=== PATIENT | female | born 1955 | race African-American/Black ===

== ENCOUNTER 2025-01-16 09:19 | Inpatient (IN) | payer MEDICARE ==
[2025-01-13 11:47] LABS: BASOPHILS % 1.4 % (0.0-1.0); EOSINOPHILS % 0.4 % (0.0-6.0); LYMPHOCYTES % 32.7 % (18.0-39.1); MONOCYTES % 6.9 % (4.4-11.3); NEUTROPHILS % 58.4 % (38.7-80.0); RED CELL DISTRIBUTION WIDTH 12.4 % (11.7-14.4)
[2025-01-13 12:17] LABS: EST GLOMERULAR FILTRATION RATE 53.0 ML/MIN (>=60)
[2025-01-16] VITALS (14 sets, daily range): BP systolic 150–181; BP diastolic 65–107; PULSE 71–101; RESP 7–16; TEMP 97.2–98.9; O2SAT 99–100
[~2025-01-16] VITALS: Ht 162.6 cm; Wt 84.9 kg
[~2025-01-16 09:19] MED LIST: ALDACTONE100 MG PO; AMOX TR-K CLV1 EAC2 PO; ATORVASTATIN CA10 MG PO; BREZTRI AEROS10.7 GM INH; CATAPRES-TTS 11 EACH TD; CEFDINIR300 MG PO; CLONIDINE HCL0.2 MG PO; EXCEDRIN EXTRA1 EAC1 PO; HYGROTON25 MG PO; LOTENSIN40 MG PO; MINOXIDIL10 MG PO; MINOXIDIL2.5 MG PO; NITROGLYCERIN0.4 MG SL; PREDNISONE20 MG PO; TERAZOSIN HCL1 MG PO; VENTOLIN HFA18 GM INH; ZOLPIDEM TARTRAT5 MG PO
[2025-01-16] MEDS: LACTATED RINGER'S 1,000 ML ONE (10:22)
[2025-01-16] MEDS: CEFAZOLIN SODIUM 2 GM ONE (10:22)
[2025-01-16] MEDS ORDERED: LIDOCAINE HCL 2% LOCAL INJ 5 ML SDV VIAL INJ ONE (12:14)
[2025-01-16] MEDS ORDERED: FENTANYL CITRATE/PF 100MCG/2 ML INJ ONE (12:14)
[2025-01-16] MEDS ORDERED: ACETAMINOPHEN 1000 MG/100 ML 100 ML IV ONE (12:14)
[2025-01-16] MEDS ORDERED: PROPOFOL IV EMULSION 10 MG/ML 20 ML VIAL ONE (12:14)
[2025-01-16] MEDS ORDERED: ROCURONIUM BROMIDE 1 ML IV ONE ×2 (12:14→15:07)
[2025-01-16] MEDS ORDERED: SEVOFLURANE INHAL SOLN 250 ML PEN BTL ONE (12:14)
[2025-01-16] MEDS ORDERED: HYDRALAZINE HCL 20 MG/ML VIAL ONE (14:03)
[2025-01-16] MEDS: SODIUM CHLORIDE 0.9% 250ML IRRIG IR SCH (14:15)
[2025-01-16] MEDS: SODIUM CHLORIDE 0.9% 1000ML 1,000 ML IV SCH (14:15)
[2025-01-16] MEDS ORDERED: NALOXONE HCL INJ 0.4 MG/ML AMP IV PRN (14:15)
[2025-01-16] MEDS ORDERED: DIPHENHYDRAMINE HCL INJ 50 MG/ML VIAL IM PRN (14:15)
[2025-01-16] MEDS ORDERED: MORPHINE SULFATE 1 MG/ML 30ML PCA IV PRN ×2 (14:15→17:00)
[2025-01-16] MEDS ORDERED: DEXAMETHASONE SOD PHOS INJ 4 MG/ML SDV ONE (14:16)
[2025-01-16] MEDS ORDERED: FAMOTIDINE 20 MG/2 ML VIAL IV ONE (14:16)
[2025-01-16] MEDS ORDERED: ONDANSETRON HCL INJ 2MG/ML 2ML 2 MG/ML VIAL ONE (14:16)
[2025-01-16] MEDS ORDERED: HYDROMORPHONE 2MG/ML ONE (14:20)
[2025-01-16] MEDS ORDERED: HYDROCORTISONE SOD SUCCINATE 100 MG VIAL ONE (14:30)
[2025-01-16] MEDS ORDERED: SUGAMMADEX SODIUM 200 MG/2 ML VIAL IV ONE (16:06)
[2025-01-16] MEDS: FENTANYL CITRATE/PF 100MCG/2 ML INJ ONE (16:30)
[2025-01-16] MEDS: MORPHINE SULFATE 1 MG/ML 30ML PCA ONE (16:43)
[2025-01-16 16:45] LABS: BASOPHILS % 0.9 % (0.0-1.0); EOSINOPHILS % 0.6 % (0.0-6.0); LYMPHOCYTES % 33.6 % (18.0-39.1); MONOCYTES % 3.2 % (4.4-11.3); NEUTROPHILS % 61.4 % (38.7-80.0); RED CELL DISTRIBUTION WIDTH 12.6 % (11.7-14.4)
[2025-01-16 17:04] LABS: EST GLOMERULAR FILTRATION RATE 56.0 ML/MIN (>=60)
[2025-01-16] MEDS: HYDROMORPHONE 1MG/1ML INJ ONE (17:24)
[2025-01-16] MEDS: ACETAMINOPHEN 1000 MG/100 ML IV PRN (20:54)
[2025-01-16] MEDS: LABETALOL HCL 5 MG/ML 20ML VIAL IV PRN (21:55)
[2025-01-16] MEDS: MORPHINE SULFATE 1 MG/ML 30ML PCA IV PRN (22:10)
[2025-01-17] VITALS (34 sets, daily range): BP systolic 139–199; BP diastolic 47–109; PULSE 66–93; RESP 10–20; TEMP 97.4–99.3; O2SAT 98–100
[2025-01-17] MEDS: HYDRALAZINE HCL 20 MG/ML VIAL IV PRN (03:40)
[2025-01-17 06:39] LABS: BASOPHILS % 0.1 % (0.0-1.0); EOSINOPHILS % 0.0 % (0.0-6.0); LYMPHOCYTES % 4.4 % (18.0-39.1); MONOCYTES % 5.0 % (4.4-11.3); NEUTROPHILS % 90.1 % (38.7-80.0); RED CELL DISTRIBUTION WIDTH 12.9 % (11.7-14.4)
[2025-01-17 06:59] LABS: EST GLOMERULAR FILTRATION RATE 48.0 ML/MIN (>=60)
[2025-01-17] MEDS: CLONIDINE HCL 0.2 MG/24 HR 1 EA PATCH TOP SCH (09:42)
[2025-01-17] MEDS ORDERED: CHLORTHALIDONE 25 MG TAB PO SCH (15:45)
[2025-01-17] MEDS: CARVEDILOL 12.5 MG TAB PO SCH (16:52)
[2025-01-17] MEDS: TERAZOSIN HCL 1 MG CAP PO SCH (21:20)
[2025-01-18] VITALS (36 sets, daily range): BP systolic 156–205; BP diastolic 52–87; PULSE 1–93; RESP 11–25; TEMP 99–99.2; O2SAT 100
[2025-01-18 06:46] LABS: BASOPHILS % 0.3 % (0.0-1.0); EOSINOPHILS % 0.1 % (0.0-6.0); LYMPHOCYTES % 9.6 % (18.0-39.1); MONOCYTES % 6.6 % (4.4-11.3); NEUTROPHILS % 82.7 % (38.7-80.0); RED CELL DISTRIBUTION WIDTH 13.3 % (11.7-14.4)
[2025-01-18 08:16] LABS: EST GLOMERULAR FILTRATION RATE 53.0 ML/MIN (>=60)
[2025-01-18] MEDS: SPIRONOLACTONE 25 MG TAB PO SCH (08:49)
[2025-01-18] MEDS: CHLORTHALIDONE 25 MG TAB PO SCH (08:49)
[2025-01-18] MEDS ORDERED: MORPHINE SULFATE 1 MG/ML 30ML PCA IV PRN (11:30)
[2025-01-18] MEDS: LACTATED RINGER'S 1,000 ML INJ ONE (11:57)
[2025-01-18] MEDS: ALBUTEROL SULF 0.083% NEB SOLN 3 ML NEB NEB SCH (13:00)
[2025-01-18] MEDS ORDERED: NIFEDIPINE CR 30 MG TAB PO ONE (16:25)
[2025-01-18] MEDS: NICARDIPINE 20MG/200ML PREMIX 200 ML IV SCH (16:46)
[2025-01-18] MEDS: HYDROMORPHONE 1MG/1ML INJ IV PRN (16:47)
[2025-01-19] VITALS (75 sets, daily range): BP systolic 121–190; BP diastolic 44–99; PULSE 69–104; RESP 13–25; TEMP 98.1–99.3; O2SAT 100
[2025-01-19 06:43] LABS: BASOPHILS % 0.3 % (0.0-1.0); EOSINOPHILS % 0.3 % (0.0-6.0); LYMPHOCYTES % 10.3 % (18.0-39.1); MONOCYTES % 5.7 % (4.4-11.3); NEUTROPHILS % 83.0 % (38.7-80.0); RED CELL DISTRIBUTION WIDTH 12.9 % (11.7-14.4)
[2025-01-19 07:27] LABS: EST GLOMERULAR FILTRATION RATE 71.0 ML/MIN (>=60)
[2025-01-19] MEDS ORDERED: MAGNESIUM SULFATE 2GM/50ML IV ONE (08:00)
[2025-01-19] MEDS: MAGNESIUM SULFATE 2GM/50ML 50 ML IV ONE (08:46)
[2025-01-19] MEDS ORDERED: NIFEDIPINE CR 30 MG TAB PO SCH (09:00)
[2025-01-19] MEDS: LACTATED RINGER'S 1,000 ML INJ SCH (13:27)
[2025-01-19] MEDS: ACETAMINOPHEN/CODEINE 300MG - 30MG TAB PO PRN (16:47)
[2025-01-19] MEDS: SENNA-S TABLET PO SCH (17:00)
[2025-01-20] VITALS (36 sets, daily range): BP systolic 94–172; BP diastolic 53–128; PULSE 65–86; RESP 14–23; TEMP 98.2–98.9; O2SAT 99–100
[2025-01-20 06:10] LABS: BASOPHILS % 0.6 % (0.0-1.0); EOSINOPHILS % 1.2 % (0.0-6.0); LYMPHOCYTES % 22.3 % (18.0-39.1); MONOCYTES % 8.0 % (4.4-11.3); NEUTROPHILS % 67.4 % (38.7-80.0); RED CELL DISTRIBUTION WIDTH 12.5 % (11.7-14.4)
[2025-01-20 06:36] LABS: PHOSPHORUS 1.8 MG/DL (2.3-4.7)
[2025-01-20 06:38] LABS: EST GLOMERULAR FILTRATION RATE 57.0 ML/MIN (>=60)
[2025-01-20] MEDS ORDERED: MAGNESIUM HYDROXIDE 30 ML UDC PO PRN (08:45)
[2025-01-20] MEDS: CLONIDINE HCL 0.3MG/24 HR PATCH TD SCH (09:00)
[2025-01-20] MEDS: TERAZOSIN HCL 1 MG CAP PO SCH (09:19)
[2025-01-20] MEDS: MAGNESIUM SULFATE 2GM/50ML 50 ML IV ONE (09:19)
[2025-01-20] MEDS: POLYETHYLENE GLYCOL 3350 17 GM PACK PO SCH (09:19)
[2025-01-20] MEDS: MINOXIDIL 2.5 MG TAB PO SCH (09:20)
[2025-01-20] MEDS: POTASSIUM CHLORIDE 20MEQ/100ML 100 ML IV SCH (09:23)
[2025-01-20] MEDS: SENNA-S TABLET PO SCH (17:20)
[2025-01-21] VITALS (19 sets, daily range): BP systolic 112–172; BP diastolic 59–111; PULSE 59–80; RESP 13–21; TEMP 98.4; O2SAT 70–100
== END 2025-01-21 14:10 | disposition home or self-care (01) | DRG 614 ==
LOC: OR 09:19 → PACU V 14:01 → ICU 17:50
PROVIDERS: ADMIT Internal Medicine; ATTEND Internal Medicine
PROC: 0W9930Z Drainage of Right Pleural Cavity with Drainage Device, Percutaneous Approach (ICD-10-PCS; 2025-01-16)
PROC: 0T9B70Z Drainage of Bladder with Drainage Device, Via Natural or Artificial Opening (ICD-10-PCS; 2025-01-16)
PROC: 0GT30ZZ Resection of Right Adrenal Gland, Open Approach (ICD-10-PCS; principal; 2025-01-16 13:44)
DX: D35.01 Benign neoplasm of right adrenal gland (principal); I47.20 Ventricular tachycardia, unspecified; N17.9 Acute kidney failure, unspecified; J98.11 Atelectasis; D69.6 Thrombocytopenia, unspecified; I16.0 Hypertensive urgency; I12.9 Hypertensive chronic kidney disease with stage 1 through stage 4 chronic kidney disease, or unspecified chronic kidney disease; N18.30 Chronic kidney disease, stage 3 unspecified; R06.89 Other abnormalities of breathing; E78.5 Hyperlipidemia, unspecified; F32.A Depression, unspecified; J44.9 Chronic obstructive pulmonary disease, unspecified; E66.9 Obesity, unspecified; Z68.32 Body mass index [BMI] 32.0-32.9, adult; Z79.52 Long term (current) use of systemic steroids
CPT/HCPCS: 36415; 71045; 71046; 80048; 80053; 83735; 84100; 84443; 85025; 86850; 86900; 88304; 88307; 93005; 93306; 94640; 94799; 99252; J0360; J0690; J1100; J1171; J1308; J1720; J2003; J2270; J2405; J2543; J3475; J3480; J7030